=== PATIENT | female | born 1960 | race Caucasian/White ===

== ENCOUNTER 2022-04-21 14:36 | Outpatient (RCR) | payer OTHER | END 2022-05-04 | disposition home or self-care (01) | LOC: WSOH | DX: M54.50 Low back pain, unspecified (principal); I10 Essential (primary) hypertension; E11.9 Type 2 diabetes mellitus without complications; Y99.0 Civilian activity done for income or pay ==

== ENCOUNTER 2022-10-08 14:00 | Outpatient (RCR) | payer OTHER | END 2022-11-04 | disposition home or self-care (01) | LOC: MKS.ESL.PT | DX: M46.1 Sacroiliitis, not elsewhere classified (principal) ==